=== PATIENT | male | born 1955 | race Caucasian/White ===

== ENCOUNTER 2021-01-09 07:09 | Outpatient (CLI) | payer OTHER ==
[~2021-01-09 07:09] MED LIST: ANTIVERT25 M1 PO; HYZAAR 50/12.51 TAB PO; LIPOFLAVOVIT CA1 TAB PO; NORVASC5 MG PO; ZOCOR20 MG PO
== END 2021-01-09 07:14 | disposition home or self-care (01) ==
LOC: SONOGRAMA 07:09 → MAMO-SONO 07:15
PROVIDERS: ATTEND Otolaryngology Otology & Neurotology
DX: M89.8X9 Other specified disorders of bone, unspecified site (principal); G62.89 Other specified polyneuropathies; M54.14 Radiculopathy, thoracic region; L72.11 Pilar cyst; E78.89 Other lipoprotein metabolism disorders; I11.9 Hypertensive heart disease without heart failure; E66.8 Other obesity; J47.1 Bronchiectasis with (acute) exacerbation; E78.49 Other hyperlipidemia; Q61.00 Congenital renal cyst, unspecified; Q61.8 Other cystic kidney diseases